=== PATIENT | male | born 1940 | race Caucasian/White ===

== ENCOUNTER 2016-07-28 09:45 | Outpatient (CLI) | payer OTHER | END 2016-07-28 19:24 | disposition home or self-care (01) | LOC: SCA 09:45 | DX: I71.2 Thoracic aortic aneurysm, without rupture (principal); I08.0 Rheumatic disorders of both mitral and aortic valves | CPT/HCPCS: 93306 ==

== ENCOUNTER 2017-08-15 10:35 | Outpatient (CLI) | payer OTHER, MEDICARE | END 2017-08-15 19:50 | disposition home or self-care (01) | LOC: SCA 10:35 | DX: I08.3 Combined rheumatic disorders of mitral, aortic and tricuspid valves (principal); I71.2 Thoracic aortic aneurysm, without rupture | CPT/HCPCS: 93306 ==

== ENCOUNTER 2019-04-14 08:05 | Outpatient (CLI) | payer OTHER, MEDICARE | END 2019-04-14 21:23 | disposition home or self-care (01) | LOC: SCA 08:05 | DX: I08.3 Combined rheumatic disorders of mitral, aortic and tricuspid valves (principal); I71.2 Thoracic aortic aneurysm, without rupture | CPT/HCPCS: 93306 ==

== ENCOUNTER 2020-08-03 21:07 | Emergency (ER) | payer OTHER, MEDICARE ==
[~2020-08-03] VITALS: Ht 170.2 cm; Wt 67.1 kg
[2020-08-03 21:07] VITALS: BP_SYST 145
--- NOTE | 2020-08-03 21:10 | NUR ---
Patient to ER bed 3 to gown for evaluation. Side rails up. Report given to Amanda/Kenn Addendum: 08/03/20 at 2119 by [email or web address] 79 y/o male bib [facility] ambulance to Er w/ c/o abdominal and back pain on/off x3 months but worse today. Patient last BM was yesterday (nml) and states no problem w/ voiding either.
--- NOTE | 2020-08-03 21:20 | NUR ---
Dr. Adams bedside for pt eval
[2020-08-03] MEDS ORDERED: COR6.25 PO (21:24)
[2020-08-03] MEDS ORDERED: ATOR20TA64 PO (21:24)
[2020-08-03] MEDS ORDERED: TAMS-11 PO (21:24)
[2020-08-03] MEDS ORDERED: ACET-2634 PO (21:24)
[2020-08-03] MEDS ORDERED: NIFE-55 PO (21:24)
[2020-08-03] MEDS ORDERED: NACL 0.9% 1,000 ML IV ONE (21:30)
--- NOTE | 2020-08-03 21:30 | NUR ---
Pt BIB family to ED with 2-day history of 8/10, sharp, intermittent lower abdominal pain that radiates to his left lumbar back associated with nausea and one episode of vomiting last night. Patient states he has no pain on examination. Patient took Tylenol with relief. Last bowel movement was yesterday morning. The patient states that he has had 2 episodes similar to his current symptoms in the past that resolved on its own. No other alleviating or exacerbating factors. VSS no other complaints noted Resting on gurney rails up
--- NOTE | 2020-08-03 21:35 | NUR ---
# 20 gauge angiocath placed to right forearm. Use of asceptic technique. Opsite placed over site. Blood return noted. Blood for lab drawn from site. Flushed with 10 cc of normal saline. No evidence of infiltration noted. Patient tolerated well.
--- NOTE | 2020-08-03 21:45 | NUR ---
Pt to CT via wheelchair.
--- NOTE | 2020-08-03 21:53 | NUR ---
Pt back from CT. No s/s of distress noted.
[2020-08-03 22:01] LABS: BASOPHILS # (AUTO) 0.1 K/uL (0.0-0.2); BASOPHILS % (AUTO) 0.5 % (0.0-2.0); EOSINOPHILS % (AUTO) 0.1 % (0.0-4.0); HEMATOCRIT 39.7 % (36-54); HEMOGLOBIN 13.4 g/dL (14.0-18.0); LYMPHOCYTES # (AUTO) 0.6 K/uL (1.0-5.5); LYMPHOCYTES % (AUTO) 5.3 % (20.5-51.5); MEAN CORPUSCULAR HEMOGLOBIN 32 pg (27-31); MEAN CORPUSCULAR HGB CONC 34 % (32-36); MEAN CORPUSCULAR VOLUME 96 fL (79.0-98.0); MONOCYTES # (AUTO) 0.8 K/uL (0.0-1.0); MONOCYTES % (AUTO) 7.6 % (1.7-9.3); NEUTROPHILS # (AUTO) 9.7 K/uL (1.8-7.7); NEUTROPHILS % (AUTO) 86.5 % (40.0-70.0); PLATELET COUNT (AUTO) 184 K/uL (130-430); RED BLOOD CELL COUNT(AUTO) 4.16 MIL/uL (4.2-6.2); RED CELL DISTRIBUTION WIDTH 13.4 % (9.0-15.0); WHITE BLOOD COUNT (AUTO) 11.1 K/uL (4.8-10.8)
--- NOTE | 2020-08-03 22:15 | NUR ---
Dr. Hatrley at the bedside examining pt.
[2020-08-03 22:25] LABS: BILIRUBIN,URINE NEGATIVE (NEGATIVE); BLOOD, URINE 2+ (NEGATIVE); COLOR,URINE YELLOW (YELLOW); GLUCOSE,URINE NEGATIVE (NEGATIVE); KETONES,URINE 1+ (NEGATIVE); LEUKOCYTE ESTERASE ,URINE NEGATIVE (NEGATIVE); NITRITE, URINE NEGATIVE (NEGATIVE); PROTEIN URINE NEGATIVE (NEGATIVE); UROBILINOGEN,URINE 0.2 (0.2-1.0)
[2020-08-03 22:31] LABS: CLARITY/URINE SLIGHTLY CLOUDY (CLEAR)
[2020-08-03 22:47] LABS: ANION GAP 6 (5-15); CALCIUM 8.1 mg/dL (8.4-11.0); CHLORIDE 102 mmol/L (98-107); CREATININE 1.69 mg/dL (0.55-1.30); GLUCOSE 118 mg/dL (70-99); POTASSIUM 3.9 mmol/L (3.5-5.1); SODIUM SERUM 137 mmol/L (136-145); UREA NITROGEN, BLOOD 20 mg/dL (8-21)
[2020-08-03 22:53] LABS: ALANINE AMINOTRANSFERASE 22 U/L (12-78); ALBUMIN 3.4 g/dL (3.4-4.8); ASPARTATE AMINOTRANSFERASE 16 U/L (10-37); TOTAL BILIRUBIN 1.2 mg/dL (0.0-1.0)
[2020-08-03 23:02] LABS: BACTERIA,URINE FEW /HPF (None Seen); WBC,URINE 0-3 /HPF (0-3)
--- NOTE | 2020-08-03 23:32 | NUR ---
Pt laying in gurney, no s/s of acute disress noted. Pt denies any pain. IVF infusing. Side rails up, safety precautions in place.
[2020-08-03] MEDS ORDERED: ACET1TAB23 PO (23:50)
--- NOTE | 2020-08-03 23:57 | NUR ---
Patient given written and verbal discharge instructions and verbalizes understanding. ER MD discussed with patient the results and treatment provided. Patient in stable condition. ID arm band removed. IV catheter removed intact and dressing applied, no active bleeding. Rx given. Patient educated on pain management and to follow up with PMD. Pain Scale 2/10. Opportunity for questions provided and answered. Medication side effect fact sheet provided.
[2020-08-03 23:59] VITALS: BP_SYST 144
== END 2020-08-03 23:59 | disposition home or self-care (01) ==
LOC: SED 21:07
DX: N13.2 Hydronephrosis with renal and ureteral calculous obstruction (principal); N28.9 Disorder of kidney and ureter, unspecified; R11.10 Vomiting, unspecified
CPT/HCPCS: 36415; 74176; 76376; 80053; 81000; 85025; 96360; 96361; 99285; J7030

== ENCOUNTER 2022-10-27 10:59 | Emergency (ER) | payer OTHER, MEDICARE ==
[~2022-10-27] VITALS: Ht 165.1 cm; Wt 59.0 kg
[~2022-10-27 10:59] MED LIST: ACET-2634 PO; ATOR20TA64 PO; COR6.25 PO; NIFE-55 PO; TAMS-11 PO
[2022-10-27 11:02] VITALS: PULSE 114; RESP 18; TEMP 97.5; O2SAT 97
[2022-10-27] MEDS ORDERED: DILTIAZEM HCL 60 MG TABLET PO ONE (11:15)
[2022-10-27] MEDS ORDERED: dilTIAZem HCL IVP 5 MG/ML VIAL IVP ONE (11:15)
[2022-10-27 11:57] LABS: BASOPHILS % (AUTO) 0.8 % (0.0-2.0); EOSINOPHILS # (AUTO) 0.1 K/uL (0.0-0.4); EOSINOPHILS % (AUTO) 1.8 % (0.0-4.0); HEMATOCRIT 40.8 % (36-54); HEMOGLOBIN 13.4 g/dL (14.0-18.0); LYMPHOCYTES # (AUTO) 0.8 K/uL (1.0-5.5); MEAN CORPUSCULAR HEMOGLOBIN 32 pg (27-31); MEAN CORPUSCULAR HGB CONC 33 % (32-36); MEAN CORPUSCULAR VOLUME 97 fL (79.0-98.0); MONOCYTES # (AUTO) 0.5 K/uL (0.0-1.0); MONOCYTES % (AUTO) 11.1 % (1.7-9.3); NEUTROPHILS # (AUTO) 2.9 K/uL (1.8-7.7); NEUTROPHILS % (AUTO) 68.3 % (40.0-70.0); PLATELET COUNT (AUTO) 220 K/uL (130-430); RED BLOOD CELL COUNT(AUTO) 4.21 MIL/uL (4.2-6.2); RED CELL DISTRIBUTION WIDTH 13.2 % (9.0-15.0); WHITE BLOOD COUNT (AUTO) 4.3 K/uL (4.8-10.8)
[2022-10-27 12:11] LABS: PROTHROMBIN TIME 10.6 SECS (9.5-12.5)
[2022-10-27 12:26] LABS: ALANINE AMINOTRANSFERASE 29 U/L (12-78); ALBUMIN 3.5 g/dL (3.4-4.8); ANION GAP 5 (5-15); ASPARTATE AMINOTRANSFERASE 26 U/L (10-37); CALCIUM 8.5 mg/dL (8.4-11.0); CARBON DIOXIDE 31 mmol/L (23-29); CHLORIDE 103 mmol/L (98-107); CREATININE 1.04 mg/dL (0.55-1.30); GLUCOSE 101 mg/dL (74-106); POTASSIUM 4.2 mmol/L (3.5-5.1); SODIUM SERUM 139 mmol/L (136-145); TOTAL BILIRUBIN 0.7 mg/dL (0.0-1.0); TOTAL PROTEIN, SERUM 6.8 g/dL (6.4-8.3); UREA NITROGEN, BLOOD 17 mg/dL (8-21)
[2022-10-27] MEDS ORDERED: ASPIRIN 81 MG TAB.CHEW PO ONE (12:30)
[2022-10-27 15:24] VITALS: BP_SYST 116; PULSE 74; RESP 18; TEMP 97.3; O2SAT 97
== END 2022-10-27 15:26 | disposition left against medical advice (07) ==
LOC: SED 10:59 → STU 13:02 → UNDOADMIN 13:02 → STU 14:41 → UNDODISIN 15:26 → STU 15:31
DX: I48.91 Unspecified atrial fibrillation (principal); R77.8 Other specified abnormalities of plasma proteins; I10 Essential (primary) hypertension; E78.5 Hyperlipidemia, unspecified; Z79.01 Long term (current) use of anticoagulants; Z79.899 Other long term (current) drug therapy
CPT/HCPCS: 99285; 96374; 71045; 80053; 83880; 85025; 85610; 85730; 84484; 36415; 93005; J3490; G0378

== ENCOUNTER 2023-05-04 11:10 | Emergency (ER) | payer OTHER, MEDICARE ==
[~2023-05-04] VITALS: Ht 167.6 cm; Wt 58.1 kg
[2023-05-04 11:31] VITALS: BP_SYST 152; PULSE 72; RESP 18; TEMP 96.9; O2SAT 99
[2023-05-04 11:52] VITALS: BP_SYST 152; PULSE 71; RESP 20; TEMP 97.9; O2SAT 99
== END 2023-05-04 11:54 | disposition home or self-care (01) ==
LOC: SED 11:10
DX: L72.3 Sebaceous cyst (principal); I10 Essential (primary) hypertension; E78.5 Hyperlipidemia, unspecified; Z79.899 Other long term (current) drug therapy
CPT/HCPCS: 99281